=== PATIENT | female | born 1970 | race Two or more races ===

== ENCOUNTER → 2018-05-14 | Outpatient (CLI) | payer OTHER | END | disposition home or self-care (01) | LOC: Rad HDHVI 13:06 | PROVIDERS: ATTEND Internal Medicine | DX: R00.2 Palpitations (principal) | CPT/HCPCS: 93306 ==

== ENCOUNTER → 2018-05-31 | Outpatient (CLI) | payer OTHER ==
[~2018-05-31] VITALS: Ht 152.4 cm; Wt 56.7 kg
[2018-05-31 15:02] LABS: Basophils # (auto) 0.1 uL; Eosinophils # (auto) 0 uL; Eosinophils % (auto) 0.6 % (0.0-7.0); Hematocrit 46.5 % (36.0-46.0); Hemoglobin 15.7 g/dL (12.2-16.2); Lymphocytes # (auto) 1.7 uL; Lymphocytes % (auto) 27.9 % (10.0-50.0); Mean Corpuscular Hemoglobin 31.4 pg (28.0-32.0); Mean Corpuscular Hgb Conc. 33.9 g/dL (32.0-36.0); Mean Corpuscular Volume 92.8 fL (80.0-100.0); Monocytes # (auto) 0.4 uL; Monocytes % (auto) 6.1 % (0.0-12.0); Neutrophils % (auto) 64.4 % (37.0-80.0); Nucleated Red Blood Cells % 0.1 %; Platelet Count (auto) 287 10^3/uL (140-450); Red Blood Cells 5.01 10^6/uL (4.0-5.20); Red Cell Distribution Width 12.7 % (11.8-14.3); Urine Blood Negative /uL (Negative); Urine Specific Gravity 1.014 (1.001-1.035); White Blood Cell 6.2 10^3/uL (4.4-10.8)
[2018-05-31 15:23] LABS: Albumin 4.1 g/dL (3.4-5.0); Potassium 3.8 mmol/L (3.5-5.1)
[2018-05-31 15:24] LABS: Free T4 (Free Thyroxine) 1.35 ng/dL (0.89-1.76)
[2018-05-31 15:38] LABS: BUN/Creatinine Ratio 19.1; Bilirubin, Total 0.6 mg/dL (0.2-1.0); Total Protein 7.4 g/dL (6.4-8.2)
== END | disposition home or self-care (01) ==
LOC: Rad HDHVI 09:31
PROVIDERS: ATTEND Internal Medicine Cardiovascular Disease
DX: R00.2 Palpitations (principal); M19.90 Unspecified osteoarthritis, unspecified site; E03.9 Hypothyroidism, unspecified; E11.9 Type 2 diabetes mellitus without complications; E55.9 Vitamin D deficiency, unspecified; D51.9 Vitamin B12 deficiency anemia, unspecified; N39.0 Urinary tract infection, site not specified
CPT/HCPCS: 36415; 78452; 80053; 80061; 81003; 82306; 82607; 83036; 84439; 84443; 85025; 87086; 93017; 96374; A9500

== ENCOUNTER → 2018-10-12 | Outpatient (CLI) | payer OTHER ==
[2018-10-12 13:26] LABS: Cholesterol 111 mg/dL (< 200); Triglycerides 96 mg/dL (< 150)
[2018-10-12 13:29] LABS: HDL Cholesterol 63 mg/dL (40-59); LDL Cholesterol 45 mg/dL (< 100)
== END | disposition home or self-care (01) ==
LOC: LAB 08:41
PROVIDERS: ATTEND Internal Medicine
DX: E78.5 Hyperlipidemia, unspecified (principal)
CPT/HCPCS: 36415; 80061